=== PATIENT | male | born 1975 | race Caucasian/White ===

== ENCOUNTER 2016-06-04 07:51 | Emergency (ER) | payer OTHER, BC ==
[2016-06-04 07:57] VITALS: BP 154/96; PULSE 104; TEMP 98; BMI 32.1
[2016-06-04] MEDS ORDERED: IBUPROFEN 400 MG TABLET (FP) PO ONE ×2 (08:21→08:24)
--- NOTE | 2016-06-04 08:29 | PDOC ---
History of Present Illness - General Chief Complaint: Pain, Acute Stated Complaint: SHOULDER PAIN Time Seen by Provider: 06/04/16 08:16 History Source: Patient - History of Present Illness Occurred: reports: just prior to arrival Upper Extremity Pain Location: right: shoulder Method of Injury: reports: other Past History - Past Medical History Allergies/Adverse Reactions: Allergies Allergy/AdvReac Type Severity Reaction Status Date / Time No Known Allergies Allergy Verified 06/04/16 07:52 Home Medications: Ambulatory Orders NK [No Known Home Medication] 04/18/15 - Immunization History Immunization Up to Date: Yes - Psycho/Social/Smoking Cessation Hx Anxiety: No Suicidal Ideation: No Smoking Status: Yes Smoking History: Former smoker Have you smoked in the past 12 months: No Number of Cigarettes Smoked Daily: 0 Cigars Per Day: 0 Information on smoking cessation initiated: No Hx Alcohol Use: No Drug/Substance Use Hx: No Substance Use Type: None Review of Systems - Review of Systems Musculoskeletal: Yes: Joint Pain. No: Joint Swelling Neurological: No: Numbness, Tingling, Weakness *Physical Exam - Vital Signs Last Vital Signs Temp Pulse Resp BP Pulse Ox 98 F 104 H 20 154/96 97 06/04/16 07:52 06/04/16 07:52 06/04/16 07:52 06/04/16 07:52 06/04/16 07:52 - Physical Exam General Appearance: Yes: Appropriately Dressed. 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 Complaining of pain to the glenohumeral joint, worse with certain range of motion. Has not taken anything for pain. Patient well-appearing and in NAD w/ tenderness to anterior aspect of R GH joint with full range of motion intact. Most likely soft tissue injury, i.e. strain. Dc with pain control *DC/Admit/Observation/Transfer Diagnosis at time of Disposition: Shoulder sprain Qualifiers: Encounter type: initial encounter Shoulder sprain type: unspecified sprain Laterality: right Qualified Code(s): S43.401A - Unspecified sprain of right shoulder joint, initial encounter - Discharge Dispostion Disposition: HOME Condition at time of disposition: Good - Patient Instructions Printed Discharge Instructions: Shoulder Sprain Additional Instructions: Take motrin as needed for pain
== END 2016-06-04 08:59 | disposition home or self-care (01) ==
LOC: JERFT 07:51
DX: S43.491A Other sprain of right shoulder joint, initial encounter (principal); X50.0XXA Overexertion from strenuous movement or load, initial encounter; Y93.89 Activity, other specified; Y92.89 Other specified places as the place of occurrence of the external cause; Y99.0 Civilian activity done for income or pay
CPT/HCPCS: 99281-25

== ENCOUNTER 2018-07-14 14:39 | Emergency (ER) | payer OTHER, BC ==
[2018-07-14 15:01] VITALS: BP 129/76; PULSE 91; TEMP 98.6; BMI 32.1
--- NOTE | 2018-07-14 15:26 | PDOC ---
*Physical Exam - Vital Signs Last Vital Signs Temp Pulse Resp BP Pulse Ox 98.6 F 91 H 20 129/76 100 07/14/18 14:58 07/14/18 14:58 07/14/18 14:58 07/14/18 14:58 07/14/18 14:58 <Reinaldo Carr - Last Filed: 07/14/18 15:26> - Vital Signs Last Vital Signs Temp Pulse Resp BP Pulse Ox 98.6 F 91 H 20 129/76 100 07/14/18 14:58 07/14/18 14:58 07/14/18 14:58 07/14/18 14:58 07/14/18 14:58 - Physical Exam Comments: 07/14/18 15:31 GENERAL: The patient is awake, alert, and fully oriented, in no acute distress. HEAD:[Normal with no signs of trauma. EYES: Pupils equal, round and reactive to light, extraocular movements intact, sclera anicteric, conjunctiva clear. EXTREMITIES: Normal range of motion, no edema. NEUROLOGICAL: Normal speech, normal gait. PSYCH: Normal mood, normal affect. SKIN: (+) small area of dried skin on dorsum of left hand. no open lesions. Warm , Dry, normal turgor, no rashes or lesions noted. 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 No mucous membrane exposure , no open lesions. Source patient does not have any known medical illnesses. 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 Cleansed No indication for prophylaxis pt reassured <Reinaldo Carr - Last Filed: 07/14/18 15:26> *DC/Admit/Observation/Transfer <Reinaldo Carr - Last Filed: 07/14/18 15:26> <Fawn Velázquez - Last Filed: 07/14/18 15:32> Diagnosis at time of Disposition: Exposure to blood or body fluid - Discharge Dispostion Disposition: HOME Condition at time of disposition: Stable - Referrals - Patient Instructions Printed Discharge Instructions: How to Handle Body Fluid Exposure -- Non- Healthcare Worker (At Home, [facility] Additional Instructions: Stay hydrated. There was no exposure to open lesions or mucosa, so prophylaxis against diseases is not necessary. Continue any current medications and see your primary doctor as needed. Return to the emergency department for any new or concerning symptoms, including skin irritation, fevers or chills, pain. - Post Discharge Activity Forms/Work/School Notes: Back to Work History of Present Illness <Reinaldo Carr - Last Filed: 07/14/18 15:26> - General History Source: Patient Exam Limitations: No Limitations - History of Present Illness Initial Comments: 07/14/18 15:28 The patient is a 42 year old male, [employer] [place] [employer], with no significant past medical history, who presents to the emergency department for concern of blood exposure. He states he was tending to a man with a bleeding wound to his hand when he sustained the man's blood on his hands and fingers. He also reports blood to his forehead but denies blood in his eyes. He denies any open wounds, sores, or lacerations on the hands or face. He denies any other complaints or concerns. Allergies: NKDA <Fawn Velázquez - Last Filed: 07/14/18 15:32> - General Chief Complaint: Blood/Body Fluid Exposure SJR Stated Complaint: BLOOD EXPOSER Time Seen by Provider: 07/14/18 15:12
== END 2018-07-14 16:16 | disposition home or self-care (01) ==
LOC: JER 14:39
DX: Z77.21 Contact with and (suspected) exposure to potentially hazardous body fluids (principal); Y35.891A Legal intervention involving other specified means, law enforcement official injured, initial encounter; Y93.89 Activity, other specified; Y92.89 Other specified places as the place of occurrence of the external cause; Y99.0 Civilian activity done for income or pay
CPT/HCPCS: 99281-25